=== PATIENT | female | born 1985 | race Caucasian/White ===

== ENCOUNTER 2016-10-16 07:56 | Day surgery (SDC) | payer BC, MEDICAID ==
[2016-10-16] MEDS ORDERED: Lactated Ringers 1,000 ML IV SCH (08:00)
[2016-10-16] MEDS ORDERED: ceFAZolin 1 GM in Sodium Chloride 0.9% 50 ML IV ONE (08:00)
[2016-10-16] MEDS ORDERED: Neostigmine Methylsulfate 1 MG/ML 5 ML Syringe IV ONE (10:00)
[2016-10-16] MEDS ORDERED: Ondansetron 4 MG/2 ML SDV IVPUSH ONE (10:00)
[2016-10-16] MEDS ORDERED: Lidocaine 1% with EPINEPHrine 1:100,000 20 ML MDV ONE (10:00)
[2016-10-16] MEDS ORDERED: Lidocaine 2% 100 MG/5 ML Syringe IVPUSH ONE (10:00)
[2016-10-16] MEDS ORDERED: fentaNYL 100 MCG/2 ML SDV IV ONE (10:00)
[2016-10-16] MEDS ORDERED: Propofol 200 MG/20 ML SDV IV ONE (10:00)
[2016-10-16] MEDS ORDERED: Bupivacaine 0.5% 30 ML SDV ONE (10:00)
[2016-10-16] MEDS ORDERED: Dexamethasone 4 MG/ML 5 ML MDV IVPUSH ONE (10:00)
[2016-10-16] MEDS ORDERED: Rocuronium 50 MG/5 ML Vial IV ONE (10:00)
[2016-10-16] MEDS ORDERED: Ketorolac 30 MG/ML SDV IVPUSH ONE (10:00)
[2016-10-16] MEDS ORDERED: Midazolam 1 MG/ML 2 ML SDV IV ONE (10:00)
[2016-10-16] MEDS ORDERED: Lactated Ringers 1,000 ML IV ONE (10:00)
--- NOTE | 2016-10-16 10:53 | PCM.OPNOTE ---
- General Post-Op/Procedure Note Date of Surgery/Procedure: 10/16/16 Operative Procedure(s): ventral hernia repair with mesh Findings: 2 cm defect Pre Op Diagnosis: ventral hernia Anesthesia Technique: General ET Tube, Local (7 ml 1% lido with epi/0.5% buvipicaine) Primary Surgeon: Amos Cifuentes Anesthesia Provider: Mily Henson Pathology: hernia sac Complications: None Condition: Good Free Text/Narrative:: see dictation [id number]
[2016-10-16] MEDS ORDERED: Acetaminophen/HYDROcodone 325-5 MG Tab PO ONE (11:47)
[2016-10-16 15:51] VITALS: BP 116/71
--- NOTE | 2016-10-16 16:34 | OR ---
DATE OF OPERATION: 10/16/2016 SURGEON: Amos Cifuentes MD PROCEDURE PERFORMED: Ventral hernia repair with mesh. PREOPERATIVE DIAGNOSIS: Ventral hernia. POSTOPERATIVE DIAGNOSIS: Ventral hernia. INDICATIONS FOR PROCEDURE: This is a 31-year-old white female, referred with a symptomatic ventral hernia. She was offered and accepted repair. INTRAOPERATIVE FINDINGS: As follows, a total of 7 mL of a 1:1 mixture of 1% lidocaine with epinephrine 0.5% bupivacaine was used to infiltrate our site. The defect itself was closed with a Ventralex ST hernia patch, reference #[id number], lot #[id number] with an expiration date of 07/24/2018. DESCRIPTION OF OPERATION: After an excellent general anesthetic was administered, the patient was prepped and draped in usual sterile manner. Local was used to infiltrate the area of the palpated defect. A 5-cm incision was then made and sharp dissection was carried out exposing the hernia. The fascia was widened to allow us to the open the hernia sac, and after ensuring no intraabdominal contents present, this was then dissected free from the underlying abdominal wall using electrocautery. A plane was raised to ensure that we had fascia on which to place our mesh. Our mesh was then inserted and the two ties were pulled up on each other and the defect was closed with a running 0 Vicryl incorporating the mesh ties into our suture line. The area was irrigated. The subcu fat was reapproximated with a running 3-0 Vicryl and the skin was closed with a running 3-0 Vicryl. Steri-Strips were applied. Needle, sponge, and instrument counts were reported as correct. The patient was taken to recovery in good condition. /[id number] /MODL
== END 2016-10-16 15:05 | disposition home or self-care (01) ==
LOC: FB.SDS 07:56
PROVIDERS: ATTEND Surgery
DX: K43.9 Ventral hernia without obstruction or gangrene (principal); Z88.2 Allergy status to sulfonamides; Z91.040 Latex allergy status; Z88.5 Allergy status to narcotic agent; F33.1 Major depressive disorder, recurrent, moderate; J45.909 Unspecified asthma, uncomplicated; Z98.890 Other specified postprocedural states; Z79.899 Other long term (current) drug therapy
CPT/HCPCS: 49560; 49568; 81025; A9270; J0690; J7050; J7120; 88302; C1781; J1100; J1885; J2250; J2405; J2704; J3010

== ENCOUNTER 2018-04-06 10:06 | Emergency (ER) | payer MEDICAID ==
[2018-04-06] MEDS ORDERED: Alum Hydroxide/Mag Hydroxide 15 ML, Lidocaine 2% 15 ML PO ONE ×2 (10:24)
[2018-04-06] MEDS ORDERED: Ondansetron 8 MG Tab.DIS PO STA (10:24)
--- NOTE | 2018-04-06 10:28 | EDM.PDOC ---
ED HPI GENERAL MEDICAL PROBLEM - General Stated Complaint: CHEST PAIN Time Seen by Provider: 04/06/18 10:06 Source of Information: Reports: Patient History Limitations: Reports: No Limitations - History of Present Illness INITIAL COMMENTS - FREE TEXT/NARRATIVE: 33 y.o.w.f -nonsmoker- came to the ed with andt CM "burning" and epigastric pain. Pt took tamps(?) with out improvement. Pt's DAD with age 62. 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 BP 138/ 84 RR 18 Pulse ox 100% on RA Temp 36.9 Pulse 88 Onset Date: 04/05/18 Onset Time: 06:00 Duration: Hour(s):, Intermittent Location: Reports: Chest Quality: Reports: Burning Severity: Moderate Improves with: Reports: Medication Worsens with: Reports: None Context: Reports: Sick Contact, Other (possible food related) Associated Symptoms: Reports: Other (nausea) - Related Data Allergies Allergy/AdvReac Type Severity Reaction Status Date / Time codeine Allergy Intermediate Rash Verified 04/06/18 11:15 latex Allergy Rash Verified 04/06/18 11:15 sulfamethoxazole Allergy Rash Verified 04/06/18 11:15 [From Bactrim] trimethoprim [From Bactrim] Allergy Rash Verified 04/06/18 11:15 Home Meds: Home Meds Albuterol [IJD: Ventolin HFA] 2 puff INH Q4H PRN 10/15/16 [History] LORazepam [Ativan] 0.5 mg PO BEDTIME 10/15/16 [History] Cyclobenzaprine [Flexeril] 10 mg pe PO DAILY PRN 04/06/18 [History] Meloxicam 7.5 mg PO DAILY 04/06/18 [History] Omeprazole 20 mg PO DAILY #10 cap.sr 04/06/18 [Rx] Venlafaxine [Effexor] 150 mg PO DAILY 04/06/18 [History] Zolpidem Tartrate [Ambien] 10 mg PO DAILY 04/06/18 [History] Past Medical History Cardiovascular History: Reports: None Respiratory History: Reports: Asthma Genitourinary History: Reports: UTI, 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: 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, Musculoskeletal History: Reports: Other (See Below) Other Musculoskeletal History: broken toe Neurological History: Reports: None Psychiatric History: Reports: Depression Endocrine/Metabolic History: Reports: Obesity/BMI 30+ Immunologic History: Reports: None Oncologic (Cancer) History: Reports: None Dermatologic History: Reports: Eczema - Past Surgical History Head Surgeries/Procedures: Reports: None HEENT Surgical History: Reports: Tonsillectomy GI Surgical History: Reports: Other (See Below) Other GI Surgeries/Procedures: HX DX LAPAROSCOPY Female Surgical History: Reports: Section Social & Family History - Family History Family Medical History: Noncontributory - Caffeine Use Caffeine Use: Reports: None ED ROS GENERAL - Review of Systems Review Of Systems: See Below Constitutional: Reports: No Symptoms HEENT: Reports: No Symptoms Respiratory: Reports: No Symptoms Cardiovascular: Reports: No Symptoms Endocrine: Reports: No Symptoms GI/Abdominal: Reports: Abdominal Pain (epigastric) : Reports: No Symptoms Musculoskeletal: Reports: No Symptoms Skin: Reports: No Symptoms Neurological: Reports: No Symptoms Psychiatric: Reports: No Symptoms Hematologic/Lymphatic: Reports: No Symptoms Immunologic: Reports: No Symptoms ED EXAM, GENERAL - Physical Exam Exam: See Below Exam Limited By: No Limitations General Appearance: Alert, WD/WN, Mild Distress Eye Exam: Bilateral Eye: Normal Inspection Ears: Normal External Exam Ear Exam: Bilateral Ear: Auricle Normal Nose: Normal Inspection, Normal Mucosa, No Blood Throat/Mouth: Normal Inspection, Normal Lips, Normal Teeth, Normal Gums, Normal Voice, No Airway Compromise Head: Atraumatic, Normocephalic Neck: Normal Inspection, Supple, Non-Tender, Full Range of Motion Respiratory/Chest: No Respiratory Distress, Lungs Clear, Normal Breath Sounds, No Accessory Muscle Use, Chest Non-Tender Cardiovascular: Normal Peripheral Pulses, Regular Rate, Rhythm, No Edema, No Gallop, No Rub Peripheral Pulses: 2+: Brachial (L) GI/Abdominal: Tender (epigastric) (Female) Exam: Deferred Rectal (Female) Exam: Deferred Back Exam: Normal Inspection, Full Range of Motion Extremities: Normal Inspection, Normal Range of Motion, Non-Tender, No Pedal Edema Neurological: Alert, Oriented, CN II-XII Intact, Normal Cognition, Normal Gait, No Motor/Sensory Deficits Psychiatric: Normal Affect, Normal Mood Skin Exam: Warm, Dry, Intact, Normal Color, No Rash Lymphatic: No Adenopathy EKG INTERPRETATION EKG Date: 04/06/18 Time: 10:15 Rhythm: NSR Rate (Beats/Min): 88 [place]: Normal P-Wave: Present QRS: Normal ST-T: Normal QT: Normal Comparison: NA - No Prior EKG Course - Vital Signs Text/Narrative:: 33 y.o.w.f -nonsmoker- came to the ed with andt CM "burning" and epigastric pain. Pt took tamps(?) with out improvement. Pt's DAD with age 62. 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 BP 138/ 84 RR 18 Pulse ox 100% on RA Temp 36.9 Pulse 88 PE: WNWD W F with epigastric pain ECG: NSR Imporession: Gastritis Tx: Zofran: GI cocktail Reexam: 100% improvement Plan: D/C with instructions Last Recorded V/S: Last Vital Signs Temp 36.9 C 04/06/18 12:00 Pulse 70 04/06/18 12:00 Resp 18 04/06/18 12:00 BP 128/84 04/06/18 12:00 Pulse Ox 100 04/06/18 12:00 - Orders/Labs/Meds Orders: Active Orders 24 hr Category Date Time Status EKG 12 Lead [EK] Routine Ther 04/06/18 10:05 Ordered Meds: Medications Discontinued Medications Generic Name Dose Route Start Last Admin Trade Name Jordanq PRN Reason Stop Dose Admin Al Hydroxide/Mg Hydroxide 15 0 ml 04/06/18 10:24 04/06/18 10:35 ml/ Lidocaine HCl 15 ml PO 04/06/18 10:25 15 ml ONETIME ONE Administration Ondansetron HCl 8 mg 04/06/18 10:24 04/06/18 10:35 Zofran Odt PO 04/06/18 10:25 8 mg ONETIME STA Administration Departure - Departure Time of Disposition: 11:35 Disposition: Home, Self-Care 01 Condition: Good Clinical Impression: Gastritis Qualifiers: Gastritis type: other gastritis Chronicity: acute Prescriptions: Omeprazole 20 mg PO DAILY #10 cap.sr Referrals: Osmar Zuniga MD [Primary Care Provider] - Forms: ED Return to Work/School Form Additional Instructions: Please avoid spicy food, coffee etc. Take Maalox 30 cc every evening before bed time for 5 days, Omeprazole as recommeded, please follow up. Come back if your symptoms get worse acutely - My Orders Last 24 Hours: My Active Orders 04/06/18 10:05 EKG 12 Lead [EK] Routine - Assessment/Plan Last 24 Hours: My Active Orders 04/06/18 10:05 EKG 12 Lead [EK] Routine
[2018-04-06 14:00] VITALS: BP 128/84
== END 2018-04-06 12:05 | disposition home or self-care (01) ==
LOC: FB.ED 10:06
DX: K29.00 Acute gastritis without bleeding (principal); E66.9 Obesity, unspecified; Z88.5 Allergy status to narcotic agent; Z88.8 Allergy status to other drugs, medicaments and biological substances; Z88.2 Allergy status to sulfonamides
CPT/HCPCS: 93005; 99283; A9270

== ENCOUNTER 2019-11-20 08:17 | Day surgery (SDC) | payer MEDICAID ==
[2019-11-20] MEDS ORDERED: Propofol 200 MG/20 ML SDV IV ONE (08:18)
[2019-11-20] MEDS ORDERED: Lidocaine 2% 5 ML SDV IV ONE (08:18)
[2019-11-20] MEDS ORDERED: Lactated Ringers 1,000 ML IV SCH (08:45)
[2019-11-20] MEDS ORDERED: Sodium Chloride 0.9% 10 ML Syringe FLUSH PRN (08:45)
--- NOTE | 2019-11-20 10:52 | PCM.OPNOTE ---
- General Post-Op/Procedure Note Date of Surgery/Procedure: 11/20/19 Operative Procedure(s): egd with biopsy Findings: gastritis fundic gland polyps Pre Op Diagnosis: hx of epigastric abd pain Post-Op Diagnosis: gastritis. fundic gland polyps Anesthesia Technique: TIFFANY Primary Surgeon: Amos Cifuentes Anesthesia Provider: Cody Pastor Pathology: stomach and polyps Complications: None Condition: Good Free Text/Narrative:: see dictation
[2019-11-20 11:40] VITALS: BP 127/79; PULSE 76
--- NOTE | 2019-11-20 11:45 | OR ---
DATE OF OPERATION: 11/20/2019 SURGEON: Amos Cifuentes MD PROCEDURE PERFORMED: Esophagogastroduodenoscopy with cold forceps biopsy. PREOPERATIVE DIAGNOSIS: History of epigastric abdominal pain and hepatosplenomegaly. POSTOPERATIVE DIAGNOSIS: Gastritis and fundic gland polyposis. INDICATIONS FOR PROCEDURE: This is a 34-year-old white female, who is referred with a history of some epigastric discomfort. She has recently been diagnosed to have some hepatosplenomegaly. However, an EGD was offered as part of a workup. DESCRIPTION OF OPERATION: After an excellent IV sedation was administered via anesthesia, the bite block was inserted. The flexible endoscope was passed without difficulty down the patient's esophagus into the stomach. Stomach was insufflated. The scope passed through the pylorus to the second portion of the duodenum and slowly withdrawn. The following findings were noted: The duodenum was unremarkable. Stomach, mild gastritis noted in the area of the antrum. Biopsies were taken, and then along the greater and lesser curve of the stomach, there were several polyps having the gross appearance of fundic gland polyposis, and major account representative biopsies were taken of several of these lesions and submitted in a separate container. GE junction measured at 40 cm. The esophagus was unremarkable. The patient tolerated the procedure well, was taken to Recovery in good condition. Results will be sent to her via letter. /[id number] /MODL
== END 2019-11-20 11:52 | disposition home or self-care (01) ==
LOC: FB.SDS 08:17
PROVIDERS: ATTEND Surgery
DX: K29.50 Unspecified chronic gastritis without bleeding (principal); K31.7 Polyp of stomach and duodenum; R16.2 Hepatomegaly with splenomegaly, not elsewhere classified; E11.9 Type 2 diabetes mellitus without complications; J45.909 Unspecified asthma, uncomplicated; Z79.899 Other long term (current) drug therapy; Z88.5 Allergy status to narcotic agent; Z88.2 Allergy status to sulfonamides; Z88.8 Allergy status to other drugs, medicaments and biological substances
CPT/HCPCS: 00731-QZ; 88305; 88342; J2001; J2704; J7120

== ENCOUNTER 2020-06-24 07:10 | Emergency (ER) | payer MEDICAID ==
[2020-06-24] MEDS ORDERED: SUMAtriptan 6 MG/0.5 ML SDV SUBCUT ONE (07:54)
[2020-06-24] MEDS ORDERED: Ondansetron 4 MG/2 ML SDV IM ONE (07:54)
--- NOTE | 2020-06-24 07:58 | EDM.PDOC ---
ED HPI GENERAL MEDICAL PROBLEM - General Chief Complaint: Headache Stated Complaint: Migraine Time Seen by Provider: 06/24/20 07:56 Source of Information: Reports: Patient History Limitations: Reports: No Limitations - History of Present Illness INITIAL COMMENTS - FREE TEXT/NARRATIVE: Presents with an occipital headache that radiates to upper back and bitemporal scalp, associated with nausea and photophobia. Patient states it feels similar to prior Migraine headaches but typical migraines are frontal, so the location is atypical. Denies injury. Onset Date: 06/23/20 Location: Reports: Head Quality: Reports: Ache Severity: Moderate Headache Pain Score (Numeric/FACES): 5 - Related Data Allergies Allergy/AdvReac Type Severity Reaction Status Date / Time codeine Allergy Intermediate Rash Verified 06/24/20 07:21 latex Allergy Rash Verified 06/24/20 07:21 sulfamethoxazole Allergy Rash Verified 06/24/20 07:21 [From Bactrim] trimethoprim [From Bactrim] Allergy Rash Verified 06/24/20 07:21 Home Meds: Home Meds LORazepam [Ativan] 0.5 mg PO BEDTIME PRN 10/15/16 [History] Cyclobenzaprine [Flexeril] 10 mg pe PO DAILY 04/06/18 [History] Zolpidem Tartrate [Ambien] 10 mg PO DAILY 04/06/18 [History] Ibuprofen [Advil] 200 mg PO ASDIRECTED PRN 11/16/19 [History] metFORMIN [Glucophage] 500 mg PO WITHDINNER 06/24/20 [History] Past Medical History HEENT History: Reports: Impaired Vision Other HEENT History: MYOPIA, INTRACTABLE MIGRAINE WITH AURA Cardiovascular History: Reports: None Other Cardiovascular History: MITRAL REGURGITATION Respiratory History: Reports: Asthma Genitourinary History: Reports: UTI, 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, Other WATER MAINTENANCE SUPERVISOR History: ABSENCE OF MENSTRUATION Musculoskeletal History: Reports: Other (See Below) Other Musculoskeletal History: broken toe Neurological History: Reports: Migraines Psychiatric History: Reports: Depression Other Psychiatric History: PANIC DISORDER Endocrine/Metabolic History: Reports: Obesity/BMI 30+ Immunologic History: Reports: None Oncologic (Cancer) History: Reports: None Dermatologic History: Reports: Eczema Other Dermatologic History: DERMATITIS, - Infectious Disease History Infectious Disease History: Reports: None - Past Surgical History Head Surgeries/Procedures: Reports: None HEENT Surgical History: Reports: Naso-Sinus Surgery, Tonsillectomy, Other (See Below) Other HEENT Surgeries/Procedures: SEPTOPLASTY Respiratory Surgical History: Reports: None GI Surgical History: Reports: Other (See Below) Other GI Surgeries/Procedures: HX DX LAPAROSCOPY Female Surgical History: Reports: Section Social & Family History - Family History Family Medical History: No Pertinent Family History - Tobacco Use Tobacco Use Status *Q: Never Tobacco User Second Hand Smoke Exposure: No - Caffeine Use Caffeine Use: Reports: Energy Drinks Other Caffeine Use: occasional - Recreational Drug Use Recreational Drug Use: No ED ROS GENERAL - Review of Systems Review Of Systems: Comprehensive ROS is negative, except as noted in HPI. - Physical Exam Exam: See Below Exam Limited By: No Limitations General Appearance: Alert, WD/WN, No Apparent Distress Eye Exam: Bilateral Eye: EOMI, PERRL Ears: Normal External Exam Throat/Mouth: No Airway Compromise Head Exam: Atraumatic, Normocephalic Neck: Supple Respiratory/Chest: No Respiratory Distress Cardiovascular: Regular Rate, Rhythm, No Murmur Neuro Exam (Abbreviated): Alert, Normal Cognition, No Motor/Sensory Deficits Extremities: Normal Range of Motion Psychiatric: Normal Affect, Normal Mood Skin Exam: Warm, Dry, Intact Course - Vital Signs Last Recorded V/S: Last Vital Signs Temp 36.4 C 06/24/20 08:57 Pulse 76 06/24/20 08:57 Resp 16 06/24/20 08:57 BP 130/74 06/24/20 08:57 Pulse Ox 95 06/24/20 08:57 - Orders/Labs/Meds Orders: Active Orders 24 hr Category Date Time Status Head wo Cont [CT] Stat Exams 06/24/20 07:54 Ordered Meds: Medications Discontinued Medications Generic Name Dose Route Start Last Admin Trade Name Freq PRN Reason Stop Dose Admin Ondansetron HCl 4 mg 06/24/20 07:54 06/24/20 08:01 Ondansetron 4 Mg/2 Ml Sdv IM 06/24/20 07:55 4 mg ONETIME ONE Administration Sumatriptan Succinate 6 mg 06/24/20 07:54 06/24/20 08:01 Sumatriptan 6 Mg/0.5 Ml Sdv SUBCUT 06/24/20 07:55 6 mg ONETIME ONE Administration - Radiology Interpretation Free Text/Narrative:: Head CT s/ contrast: IMPRESSION: Unremarkable noncontrast CT scan of the brain. Dictated by Valdez Layton MD @ Jun 24 2020 9:04AM - Re-Assessments/Exams Free Text/Narrative Re-Assessment/Exam: 06/24/20 09:12 Symptoms improved after Imitrex 6mg SC and Zofran 4mg IM. Departure - Departure Time of Disposition: 09:12 Disposition: Home, Self-Care 01 Condition: Good Clinical Impression: Migraine Qualifiers: Migraine type: unspecified Status migrainosus presence: without status migrainosus Intractability: not intractable Qualified Code(s): G43.909 - Migraine, unspecified, not intractable, without status migrainosus - Discharge Information Instructions: Migraine Headache, [id number] Referrals: Osmar Zuniga MD [Primary Care Provider] - 2 Days Forms: ED Department Discharge, ED Return to Work/School Form Additional Instructions: Rest. Drink plenty of fluids. Follow up with your primary physician in 2-3 days. Return to the ER if symptoms worsen. Sepsis Event Note (ED) - Evaluation Sepsis Screening Result: No Definite Risk - Focused Exam Vital Signs: Vital Signs Temp Pulse Resp BP Pulse Ox 06/24/20 08:57 36.4 C 76 16 130/74 95 06/24/20 07:15 36.9 C 90 16 145/78 H 96 - My Orders Last 24 Hours: My Active Orders 06/24/20 07:54 Head wo Cont [CT] Stat - Assessment/Plan Last 24 Hours: My Active Orders 06/24/20 07:54 Head wo Cont [CT] Stat
[2020-06-24 08:58] VITALS: BP 130/74; PULSE 76
== END 2020-06-24 09:25 | disposition home or self-care (01) ==
LOC: FB.ED 07:10
DX: G43.909 Migraine, unspecified, not intractable, without status migrainosus (principal); J45.909 Unspecified asthma, uncomplicated; E66.9 Obesity, unspecified; Z68.32 Body mass index [BMI] 32.0-32.9, adult; Z79.899 Other long term (current) drug therapy; Z88.5 Allergy status to narcotic agent; Z91.040 Latex allergy status; Z88.2 Allergy status to sulfonamides; Z88.1 Allergy status to other antibiotic agents
CPT/HCPCS: 70450; 96372; 99283-25; J2405; J3030

== ENCOUNTER 2020-09-11 17:48 | Emergency (ER) | payer BC, MEDICAID ==
[2020-09-11] MEDS ORDERED: Glucagon,Human Recombinant 1 MG Vial IM PRN (18:31)
[2020-09-11] MEDS ORDERED: Insulin Lispro 100 Unit/ML 3 ML KwikPen SUBCUT STA (18:31)
[2020-09-11] MEDS ORDERED: Sodium Chloride 0.9% 10 ML Syringe FLUSH PRN (18:31)
[2020-09-11] MEDS ORDERED: 50% Dextrose in Water 50 ML Syringe IVPUSH PRN (18:31)
[2020-09-11] MEDS ORDERED: Metoprolol Tartrate 25 MG Tab PO STA (18:36)
[2020-09-11] MEDS ORDERED: Sodium Chloride 0.9% 1,000 ML IV SCH (18:45)
[2020-09-11] MEDS ORDERED: Insulin Lispro 100 Unit/ML 3 ML KwikPen SUBCUT ONE (18:51)
--- NOTE | 2020-09-11 19:08 | EDM.PDOC ---
ED HPI GENERAL MEDICAL PROBLEM - General Stated Complaint: DIABETES Time Seen by Provider: 09/11/20 18:55 Source of Information: Reports: Patient History Limitations: Reports: No Limitations - History of Present Illness INITIAL COMMENTS - FREE TEXT/NARRATIVE: Patient presented to the ED because of altered level of consciousness. She was disoriented and confused since yesterday. She went to the [facility] today and the cbc-normal. [id number],UA-negative, Covid-neg,HCG-neg. She has a history of Stage 4 liver cirrhosis and will see her Classification And Treatment Director at [facility] sometime in September this year. - Related Data Allergies Allergy/AdvReac Type Severity Reaction Status Date / Time codeine Allergy Intermediate Rash Verified 06/24/20 07:21 latex Allergy Rash Verified 06/24/20 07:21 sulfamethoxazole Allergy Rash Verified 06/24/20 07:21 [From Bactrim] trimethoprim [From Bactrim] Allergy Rash Verified 06/24/20 07:21 Home Meds: Home Meds LORazepam [Ativan] 0.5 mg PO BEDTIME PRN 10/15/16 [History] Cyclobenzaprine [Flexeril] 10 mg pe PO DAILY 04/06/18 [History] Zolpidem Tartrate [Ambien] 10 mg PO DAILY 04/06/18 [History] Ibuprofen [Advil] 200 mg PO ASDIRECTED PRN 11/16/19 [History] metFORMIN [Glucophage] 500 mg PO WITHDINNER 06/24/20 [History] Past Medical History HEENT History: Reports: Impaired Vision Other HEENT History: MYOPIA, INTRACTABLE MIGRAINE WITH AURA Cardiovascular History: Reports: None Other Cardiovascular History: MITRAL REGURGITATION Respiratory History: Reports: Asthma Genitourinary History: Reports: UTI, 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: 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, Other SIGNAL INTELLIGENCE ANALYST History: ABSENCE OF MENSTRUATION Musculoskeletal History: Reports: Other (See Below) Other Musculoskeletal History: broken toe Neurological History: Reports: Migraines Psychiatric History: Reports: Depression Other Psychiatric History: PANIC DISORDER Endocrine/Metabolic History: Reports: Obesity/BMI 30+ Immunologic History: Reports: None Oncologic (Cancer) History: Reports: None Dermatologic History: Reports: Eczema Other Dermatologic History: DERMATITIS, - Infectious Disease History Infectious Disease History: Reports: None - Past Surgical History Head Surgeries/Procedures: Reports: None HEENT Surgical History: Reports: Naso-Sinus Surgery, Tonsillectomy, Other (See Below) Other HEENT Surgeries/Procedures: SEPTOPLASTY Respiratory Surgical History: Reports: None GI Surgical History: Reports: Other (See Below) Other GI Surgeries/Procedures: HX DX LAPAROSCOPY Female Surgical History: Reports: Section Social & Family History - Family History Family Medical History: No Pertinent Family History - Caffeine Use Caffeine Use: Reports: Energy Drinks Other Caffeine Use: occasional ED ROS GENERAL - Review of Systems Review Of Systems: See Below Constitutional: Reports: No Symptoms HEENT: Reports: No Symptoms Respiratory: Reports: No Symptoms Cardiovascular: Reports: No Symptoms Endocrine: Reports: No Symptoms GI/Abdominal: Reports: No Symptoms : Reports: No Symptoms Musculoskeletal: Reports: No Symptoms Skin: Reports: No Symptoms Neurological: Reports: Confusion Psychiatric: Reports: No Symptoms Hematologic/Lymphatic: Reports: No Symptoms ED EXAM, GENERAL - Physical Exam Exam: See Below Exam Limited By: No Limitations General Appearance: Alert, No Apparent Distress Ears: Normal External Exam, Normal Canal Nose: Normal Inspection, Normal Mucosa, No Blood Throat/Mouth: Normal Inspection, Normal Lips, Normal Teeth Head: Atraumatic, Normocephalic Neck: Normal Inspection, Supple, Non-Tender, Full Range of Motion Respiratory/Chest: No Respiratory Distress, Lungs Clear, Normal Breath Sounds, No Accessory Muscle Use, Chest Non-Tender Cardiovascular: Normal Peripheral Pulses, Regular Rate, Rhythm, No Edema, No Gallop, No JVD GI/Abdominal: Normal Bowel Sounds, Soft, Non-Tender, No Organomegaly, No Distention Back Exam: Normal Inspection, Full Range of Motion Course - Vital Signs Text/Narrative:: Labs from [facility] was reviewed and discussed with patient NH3-pending NS 1 L bolus Humalog [address] Hassan will take responsibility about the Disposition for the patient as there is a change in shift. Last Recorded V/S: Last Vital Signs Temp 37.2 C 09/11/20 18:36 Pulse 80 09/11/20 18:36 Resp 18 09/11/20 18:36 BP 133/78 09/11/20 18:36 Pulse Ox 96 09/11/20 18:36 - Orders/Labs/Meds Orders: Active Orders 24 hr Category Date Time Status Head wo Cont [CT] Stat Exams 09/11/20 19:02 Taken AMMONIA, PLASMA Stat Lab 09/11/20 18:40 Received Saline Lock Insert [OM.PC] Routine Oth 09/11/20 18:31 Ordered Labs: Laboratory Tests 09/11/20 Range/Units 19:56 POC Glucose 163 H (80-116) mg/dL Meds: Medications Discontinued Medications Generic Name Dose Route Start Last Admin Trade Name Amada PRN Reason Stop Dose Admin Dextrose/Water 50 ml 09/11/20 18:31 50% Dextrose In Water 50 Ml Syringe IVPUSH ASDIRECTED PRN Hypoglycemia Glucagon 1 mg 09/11/20 18:31 Glucagon,Human Recombinant 1 Mg Vial IM ASDIRECTED PRN Hypoglycemia Sodium Chloride 1,000 mls @ 999 mls/hr 09/11/20 18:45 09/11/20 18:48 Normal Saline IV 999 mls/hr ASDIRECTED PRICE Administration Insulin Human Lispro 15 unit 09/11/20 18:31 09/11/20 18:53 Insulin Lispro 100 Unit/Ml 3 Ml Kwikpen SUBCUT 09/11/20 18:32 15 units NOW STA Administration Insulin Human Lispro 300 unit 09/11/20 18:51 Insulin Lispro 100 Unit/Ml 3 Ml Kwikpen SUBCUT 09/11/20 18:52 .STK-MED ONE Metoprolol Tartrate 25 mg 09/11/20 18:36 Metoprolol Tartrate 25 Mg Tab PO 09/11/20 18:37 NOW STA Sodium Chloride 10 ml 09/11/20 18:31 Sodium Chloride 0.9% 10 Ml Syringe FLUSH ASDIRECTED PRN Keep Vein Open Departure - Departure Time of Disposition: 20:49 Disposition: Home, Self-Care 01 Clinical Impression: Hyperglycemia - Discharge Information Instructions: Ammonia Test, Hyperglycemia, Diabetes Mellitus and Nutrition, Adult Referrals: Osmar Zuniga MD [Primary Care Provider] - Forms: ED Department Discharge Additional Instructions: Your ammonia lab results won't be back until Wednesday or Wednesday. We will call with your results at that time. Monitor your blood sugar and follow up tomorrow with your primary care provider. - My Orders Last 24 Hours: My Active Orders 09/11/20 18:31 Saline Lock Insert [OM.PC] Routine 09/11/20 18:40 AMMONIA, PLASMA Stat 09/11/20 19:02 Head wo Cont [CT] Stat - Assessment/Plan Last 24 Hours: My Active Orders 09/11/20 18:31 Saline Lock Insert [OM.PC] Routine 09/11/20 18:40 AMMONIA, PLASMA Stat 09/11/20 19:02 Head wo Cont [CT] Stat
[2020-09-11 19:18] VITALS: BP 133/78; PULSE 80
== END 2020-09-11 20:49 | disposition home or self-care (01) ==
LOC: FB.ED 17:48
DX: R73.9 Hyperglycemia, unspecified (principal); E66.9 Obesity, unspecified; Z68.30 Body mass index [BMI] 30.0-30.9, adult; Z88.5 Allergy status to narcotic agent; Z91.040 Latex allergy status; Z88.1 Allergy status to other antibiotic agents
CPT/HCPCS: 36415; 70450; 82140; 82947; 99283; 99285-25; J1815; J7030

== ENCOUNTER 2020-11-13 15:31 | Emergency (ER) | payer MEDICAID, BC ==
[2020-11-13] MEDS ORDERED: Aspirin 81 MG Tab.Chew PO ONE (15:43)
[2020-11-13] MEDS ORDERED: Metoclopramide 10 MG/2 ML SDV IVPUSH ONE (15:43)
[2020-11-13] MEDS ORDERED: Nitroglycerin 0.4 MG Tab.SL SL ONE (15:43)
[2020-11-13] MEDS ORDERED: Alum Hydroxide/Mag Hydroxide 30 ML, Lidocaine 2% 15 ML PO ONE ×2 (15:44)
--- NOTE | 2020-11-13 16:57 | EDM.PDOC ---
ED HPI GENERAL MEDICAL PROBLEM - General Stated Complaint: CHEST PAINS Time Seen by Provider: 11/13/20 15:31 Source of Information: Reports: Patient, Family History Limitations: Reports: No Limitations - History of Present Illness INITIAL COMMENTS - FREE TEXT/NARRATIVE: c/o midsternal chest pain no radiation, ate fast food for lunch, one hour later had sharp pain in mid substernal area comes to ED with Alexander and 2 children, very anxious on arrival altho HR 84, pain resolved after GI cocktail, also given NTG SL to relax esophagus and ASA 324 mg chewed, some nausea, given Reglan 10 mg IV for pain and nausea pt states she has had panic attacks in past has stage 4 cirrhosis which is d/t DM (per pt), suspect low plts and mild inc'd LFTs/CRP are d/t cirrhosis - Related Data Allergies Allergy/AdvReac Type Severity Reaction Status Date / Time codeine Allergy Intermediate Rash Verified 06/24/20 07:21 latex Allergy Rash Verified 06/24/20 07:21 sulfamethoxazole Allergy Rash Verified 06/24/20 07:21 [From Bactrim] trimethoprim [From Bactrim] Allergy Rash Verified 06/24/20 07:21 Home Meds: Home Meds LORazepam [Ativan] 0.5 mg PO BEDTIME PRN 10/15/16 [History] Cyclobenzaprine [Flexeril] 10 mg pe PO DAILY 04/06/18 [History] Zolpidem Tartrate [Ambien] 10 mg PO DAILY 04/06/18 [History] Ibuprofen [Advil] 200 mg PO ASDIRECTED PRN 11/16/19 [History] metFORMIN [Glucophage] 500 mg PO WITHDINNER 06/24/20 [History] Omeprazole 20 mg PO DAILY #14 capsule. 11/13/20 [Rx] hydrOXYzine HCL [Hydroxyzine HCl] 25 mg PO TID #15 tablet 11/13/20 [Rx] Past Medical History HEENT History: Reports: Impaired Vision Other HEENT History: MYOPIA, INTRACTABLE MIGRAINE WITH AURA Cardiovascular History: Reports: None Other Cardiovascular History: MITRAL REGURGITATION Respiratory History: Reports: Asthma Genitourinary History: Reports: UTI, Recurrent PLUMBER AND TINNER History: Reports: 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, Other PLUMBER AND TINNER History: ABSENCE OF MENSTRUATION Musculoskeletal History: Reports: Other (See Below) Other Musculoskeletal History: broken toe Neurological History: Reports: Migraines Psychiatric History: Reports: Depression Other Psychiatric History: PANIC DISORDER Endocrine/Metabolic History: Reports: Diabetes, Type II, Obesity/BMI 30+ Immunologic History: Reports: None Oncologic (Cancer) History: Reports: None Dermatologic History: Reports: Eczema Other Dermatologic History: DERMATITIS, - Infectious Disease History Infectious Disease History: Reports: None - Past Surgical History Head Surgeries/Procedures: Reports: None HEENT Surgical History: Reports: Naso-Sinus Surgery, Tonsillectomy, Other (See Below) Other HEENT Surgeries/Procedures: SEPTOPLASTY Respiratory Surgical History: Reports: None GI Surgical History: Reports: Other (See Below) Other GI Surgeries/Procedures: HX DX LAPAROSCOPY Female Surgical History: Reports: Section Social & Family History - Family History Family Medical History: No Pertinent Family History - Caffeine Use Caffeine Use: Reports: Soda Other Caffeine Use: occasional ED ROS GENERAL - Review of Systems Review Of Systems: See Below Constitutional: Reports: No Symptoms. Denies: Fever HEENT: Reports: No Symptoms Respiratory: Reports: No Symptoms. Denies: Shortness of Breath, Cough Cardiovascular: Reports: No Symptoms, Chest Pain. Denies: Palpitations Endocrine: Reports: No Symptoms GI/Abdominal: Reports: Nausea. Denies: Vomiting : Reports: No Symptoms Musculoskeletal: Reports: No Symptoms Skin: Reports: No Symptoms Neurological: Reports: No Symptoms Psychiatric: Reports: No Symptoms Hematologic/Lymphatic: Reports: No Symptoms Immunologic: Reports: No Symptoms ED EXAM, GI/ABD - Physical Exam Exam: See Below Exam Limited By: No Limitations General Appearance: Alert, WD/WN, Anxious Eyes: Bilateral: EOMI Ears: Normal External Exam, Hearing Grossly Normal Nose: Normal Inspection, Normal Mucosa, No Blood Throat/Mouth: Normal Inspection, Normal Lips, Normal Voice, No Airway Compromise Head: Atraumatic, Normocephalic Neck: Normal Inspection, Supple, Non-Tender, Full Range of Motion Respiratory/Chest: No Respiratory Distress, Lungs Clear, Normal Breath Sounds, Chest Non-Tender Cardiovascular: Regular Rate, Rhythm, No Edema, No Gallop, No Murmur GI/Abdominal Exam: Normal Bowel Sounds, Soft, No Distention, Other (1+ epigastric tender that resolved after GI cocktail) Back Exam: No: CVA Tenderness (R), CVA Tenderness (L) Extremities: Normal Inspection, Normal Range of Motion, Non-Tender, No Pedal Edema Neurological: Alert, Oriented, CN II-XII Intact, Normal Cognition, No Motor/Sensory Deficits Psychiatric: Anxious, Other (visible anxious and shaking, more calm on reassurance from RN and myself) Skin Exam: Warm, Dry, Intact, Normal Color, No Rash Lymphatic: No Adenopathy #1 Interpretation EKG Date: 11/13/20 Time: 15:25 Rhythm: NSR Rate (Beats/Min): 90 [place]: Normal P-Wave: Present QRS: Normal ST-T: Normal QT: Normal EKG Interpretation Comments: NSC c/w 04-06-18, baseline artifact, nonspecific flattening of T-waves is old and c/w liver disease, no acute/ischemic changes Course - Vital Signs Last Recorded V/S: Last Vital Signs Temp Pulse Resp BP 167/107 H 11/13/20 15:50 Pulse Ox - Orders/Labs/Meds Labs: Laboratory Tests 11/13/20 11/13/20 11/13/20 Range/Units 15:40 15:40 15:40 WBC 9.9 (3.0-10.3) x10-3/uL RBC 4.20 (3.60-5.20) x10(6)uL Hgb 12.7 (11.4-15.5) g/dL Hct 37.8 (34.2-48.2) % MCV 89.9 (76.7-100.5) fL MCH 30.2 (23.9-33.9) pg MCHC 33.6 (31.9-34.8) g/dL RDW 13.1 (12.3-16.5) % Plt Count 129 L (151-488) x10(3)uL MPV 8.8 (7.1-12.4) fL Neut % (Auto) 56.3 (30.8-76.2) % Lymph % (Auto) 37.2 (18.4-52.1) % [place] % (Auto) 5.0 (4.4-15.7) % Eos % (Auto) 1.1 (0.6-8.1) % Baso % (Auto) 0.4 (0.2-1.5) % Neut # (Auto) 5.6 (1.5-6.3) x10-3/uL Lymph # (Auto) 3.7 (1.0-4.4) x10-3/uL [place] # (Auto) 0.5 (0.3-1.0) x10-3/uL Eos # (Auto) 0.1 (0.0-0.8) x10-3/uL Baso # (Auto) 0.0 (0.0-0.1) x10-3/uL Sodium 142 (135-145) mmol/L Potassium 3.9 (3.5-5.3) mmol/L Chloride 105 (100-110) mmol/L Carbon Dioxide 25 (21-32) mmol/L BUN 8 (7-18) mg/dL Creatinine 0.8 (0.55-1.02) mg/dL Est Cr Clr Drug Dosing TNP Estimated GFR (MDRD) > 60 (>60) BUN/Creatinine Ratio 10.0 (9-20) Glucose 131 H (80-116) mg/dL Calcium 9.2 (8.6-10.2) mg/dL Total Bilirubin 0.6 (0.1-1.3) mg/dL AST 55 H (5-25) IU/L ALT 39 H (12-36) U/L Alkaline Phosphatase 94 (56-112) IU/L Troponin I < 4.0 L (4.0-60.3) pg/mL C-Reactive Protein 1.1 H (0.5-0.9) mg/dL Total Protein 8.0 (6.0-8.0) g/dL Albumin 3.9 (3.5-5.2) g/dL Globulin 4.1 g/dL Albumin/Globulin Ratio 1.0 Meds: Medications Discontinued Medications Generic Name Dose Route Start Last Admin Trade Name Freq PRN Reason Stop Dose Admin Aspirin 324 mg 11/13/20 15:43 11/13/20 15:47 Aspirin 81 Mg Tab.Chew PO 11/13/20 15:44 324 mg ONETIME ONE Administration Al Hydroxide/Mg Hydroxide 30 0 ml 11/13/20 15:44 11/13/20 15:51 ml/ Lidocaine HCl 15 ml PO 11/13/20 15:45 45 ml ONETIME ONE Administration Metoclopramide HCl 10 mg 11/13/20 15:43 11/13/20 15:51 Metoclopramide 10 Mg/2 Ml Sdv IVPUSH 11/13/20 15:44 10 mg ONETIME ONE Administration Nitroglycerin 0.4 mg 11/13/20 15:43 11/13/20 15:50 Nitroglycerin 0.4 Mg Tab.Sl SL 11/13/20 15:44 0.4 mg ONETIME ONE Administration - Re-Assessments/Exams Free Text/Narrative Re-Assessment/Exam: 11/13/20 17:04 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 Instructions: Nonspecific Chest Pain, Adult, Gastroesophageal Reflux Disease, Adult Referrals: Osmar Zuniga MD [Primary Care Provider] - Additional Instructions: To decrease acid production, take omeprazole 20 mg 1 capsule daily for 2 weeks. For recurrent pain, take liquid antacid 30 ml every 4 hours as needed. To prevent cramping and pain, take hydroxyzine 25 mg 1 tab 3 times a day for 5 days. Rest today May work tomorrow. See Dr Zuniga in 2 days for further recommendations. Return to Emergency Room if you are feeling worse. Sepsis Event Note (ED) - Focused Exam Vital Signs: Vital Signs BP 11/13/20 15:50 167/107 H
[2020-11-13 18:14] VITALS: BP 153/100; PULSE 88
== END 2020-11-13 17:10 | disposition home or self-care (01) ==
LOC: FB.ED 15:31
DX: R07.2 Precordial pain (principal); K21.9 Gastro-esophageal reflux disease without esophagitis; D69.6 Thrombocytopenia, unspecified; R79.89 Other specified abnormal findings of blood chemistry; E11.9 Type 2 diabetes mellitus without complications; E66.9 Obesity, unspecified; Z88.5 Allergy status to narcotic agent; Z91.040 Latex allergy status; Z88.1 Allergy status to other antibiotic agents; Z79.84 Long term (current) use of oral hypoglycemic drugs; Z79.899 Other long term (current) drug therapy; Z68.32 Body mass index [BMI] 32.0-32.9, adult
CPT/HCPCS: 36415; 80053; 84484; 85025; 86140; 93005; 96374; 99285; A9270; J2765

== ENCOUNTER 2020-12-30 19:45 | Emergency (ER) | payer MEDICAID, BC ==
[2020-12-30 20:19] VITALS: BP 151/84; PULSE 86
--- NOTE | 2020-12-30 20:54 | EDM.PDOC ---
ED HPI GENERAL MEDICAL PROBLEM - General Chief Complaint: General Stated Complaint: POSS UTI/ Time Seen by Provider: 12/30/20 20:10 Source of Information: Reports: Patient History Limitations: Reports: No Limitations - History of Present Illness INITIAL COMMENTS - FREE TEXT/NARRATIVE: Patient presented to the ED because increase frequency of urination. There is no dysuria, urgency, fever,chills, nausea, vomiting or flank pain. - Related Data Allergies Allergy/AdvReac Type Severity Reaction Status Date / Time codeine Allergy Intermediate Rash Verified 11/13/20 17:44 latex Allergy Rash Verified 11/13/20 17:44 sulfamethoxazole Allergy Rash Verified 11/13/20 17:44 [From Bactrim] trimethoprim [From Bactrim] Allergy Rash Verified 11/13/20 17:44 Home Meds: Home Meds Insulin Aspart [Novolog Flexpen] 7 units ACBREAKFAST 12/30/20 [History] Insulin Detemir [Levemir] 20 units BEDTIME 12/30/20 [History] cephALEXin [Keflex] 500 mg PO Q8H #15 cap 12/30/20 [Rx] Past Medical History HEENT History: Reports: Impaired Vision Other HEENT History: MYOPIA, INTRACTABLE MIGRAINE WITH AURA Cardiovascular History: Reports: None Other Cardiovascular History: MITRAL REGURGITATION Respiratory History: Reports: Asthma Genitourinary History: Reports: UTI, Recurrent MUTUAL FUND MANAGER History: Reports: 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, Other MUTUAL FUND MANAGER History: ABSENCE OF MENSTRUATION Musculoskeletal History: Reports: Other (See Below) Other Musculoskeletal History: broken toe Neurological History: Reports: Migraines Psychiatric History: Reports: Depression Other Psychiatric History: PANIC DISORDER Endocrine/Metabolic History: Reports: Diabetes, Type II, Obesity/BMI 30+ Immunologic History: Reports: None Oncologic (Cancer) History: Reports: None Dermatologic History: Reports: Eczema Other Dermatologic History: DERMATITIS, - Infectious Disease History Infectious Disease History: Reports: None - Past Surgical History Head Surgeries/Procedures: Reports: None HEENT Surgical History: Reports: Naso-Sinus Surgery, Tonsillectomy, Other (See Below) Other HEENT Surgeries/Procedures: SEPTOPLASTY Respiratory Surgical History: Reports: None GI Surgical History: Reports: Other (See Below) Other GI Surgeries/Procedures: HX DX LAPAROSCOPY Female Surgical History: Reports: Section Social & Family History - Family History Family Medical History: No Pertinent Family History - Caffeine Use Caffeine Use: Reports: Energy Drinks, Soda Other Caffeine Use: occasional ED ROS GENERAL - Review of Systems Review Of Systems: See Below Constitutional: Reports: No Symptoms HEENT: Reports: No Symptoms Respiratory: Reports: No Symptoms Cardiovascular: Reports: No Symptoms Endocrine: Reports: No Symptoms GI/Abdominal: Reports: No Symptoms : Reports: No Symptoms Musculoskeletal: Reports: No Symptoms Skin: Reports: No Symptoms ED EXAM, GENERAL - Physical Exam Exam: See Below Exam Limited By: No Limitations General Appearance: Alert, No Apparent Distress Ears: Normal External Exam, Normal Canal Nose: Normal Inspection, Normal Mucosa, No Blood Throat/Mouth: Normal Inspection, Normal Lips, Normal Teeth Head: Atraumatic, Normocephalic Neck: Normal Inspection, Supple, Non-Tender, Full Range of Motion Respiratory/Chest: No Respiratory Distress, Lungs Clear, Normal Breath Sounds, No Accessory Muscle Use, Chest Non-Tender Cardiovascular: Normal Peripheral Pulses, Regular Rate, Rhythm, No Edema, No Gallop, No JVD, No Murmur, No Rub GI/Abdominal: Normal Bowel Sounds, Soft, Non-Tender, No Organomegaly Back Exam: Normal Inspection, Full Range of Motion Extremities: Normal Inspection, Normal Range of Motion, Non-Tender, No Pedal Edema, Normal Capillary Refill Neurological: Alert, Oriented, CN II-XII Intact, Normal Reflexes, No Motor/Sensory Deficits Psychiatric: Normal Affect Skin Exam: Warm Course - Vital Signs Text/Narrative:: UA was negative but patient is symptomatic. Last Recorded V/S: Last Vital Signs Temp 36.8 C 12/30/20 20:04 Pulse 86 12/30/20 20:04 Resp 16 12/30/20 20:04 BP 151/84 H 12/30/20 20:04 Pulse Ox 94 L 12/30/20 20:04 - Orders/Labs/Meds Labs: Laboratory Tests 12/30/20 Range/Units 20:15 Urine Color Yellow (YELLOW) Urine Appearance Clear (CLEAR) Urine pH 6.5 (5.0-6.5) Ur Specific [place] 1.020 (1.010-1.025) Urine Protein Negative (NEGATIVE) mg/dL Urine Glucose (UA) 50 H (NORMAL) mg/dL Urine Ketones Negative (NEGATIVE) mg/dL Urine Occult Blood Negative (NEGATIVE) Urine Nitrite Negative (NEGATIVE) Urine Bilirubin Negative (NEGATIVE) Urine Urobilinogen 1 H (NEGATIVE) mg/dL Ur Leukocyte Esterase Negative (NEGATIVE) Urine RBC 0-5 (0-5) Urine WBC 0-5 (0-5) Ur Squamous Epith Cells Few H (NS,R,O) Urine Bacteria Few H (NS) Meds: Medications Discontinued Medications Generic Name Dose Route Start Last Admin Trade Name Amada PRN Reason Stop Dose Admin Cephalexin 500 mg 12/30/20 20:56 12/30/20 21:06 Cephalexin 500 Mg Cap PO 12/30/20 20:57 500 mg NOW STA Administration Departure - Departure Time of Disposition: 20:55 Disposition: Home, Self-Care 01 Condition: Good Clinical Impression: UTI (urinary tract infection) - Discharge Information Prescriptions: cephALEXin [Keflex] 500 mg PO Q8H #15 cap Instructions: Urinary Tract Infection, Adult, [id number], Cephalexin Tablets or Capsules Referrals: Osmar Zuniga MD [Primary Care Provider] - Forms: ED Department Discharge Additional Instructions: Please read discharge instructions on UTI Increase fluid intake Keflex 500 mg 3 times daily for 5 days Follow up as needed Sepsis Event Note (ED) - Evaluation Sepsis Screening Result: No Definite Risk - Focused Exam Vital Signs: Vital Signs Temp Pulse Resp BP Pulse Ox 12/30/20 20:04 36.8 C 86 16 151/84 H 94 L
[2020-12-30] MEDS ORDERED: Cephalexin 500 MG Cap PO STA (20:56)
== END 2020-12-30 21:00 | disposition home or self-care (01) ==
LOC: FB.ED 19:45
DX: N39.0 Urinary tract infection, site not specified (principal); J45.909 Unspecified asthma, uncomplicated; E11.9 Type 2 diabetes mellitus without complications; E66.9 Obesity, unspecified; Z68.31 Body mass index [BMI] 31.0-31.9, adult; Z88.5 Allergy status to narcotic agent; Z91.040 Latex allergy status; Z88.2 Allergy status to sulfonamides; Z79.4 Long term (current) use of insulin
CPT/HCPCS: 81001; 99283; A9270

== ENCOUNTER 2021-04-10 22:24 | Emergency (ER) | payer BC, MEDICAID ==
[2021-04-10 22:42] VITALS: BP 148/83
[2021-04-10] MEDS ORDERED: LORazepam 2 MG/ML SDV IVPUSH STA (23:48)
[2021-04-10] MEDS ORDERED: Albuterol/Ipratropium 3.0-0.5 MG/3 ML Neb Soln NEB ONE (23:48)
[2021-04-10] MEDS ORDERED: LORazepam 2 MG/ML SDV IM STA (23:49)
[2021-04-11 01:46] VITALS: PULSE 89
== END 2021-04-11 01:10 | disposition home or self-care (01) ==
LOC: FB.ED 22:24
DX: J45.909 Unspecified asthma, uncomplicated (principal); F41.9 Anxiety disorder, unspecified; E11.9 Type 2 diabetes mellitus without complications; E66.9 Obesity, unspecified; Z68.32 Body mass index [BMI] 32.0-32.9, adult; Z88.5 Allergy status to narcotic agent; Z91.040 Latex allergy status; Z88.2 Allergy status to sulfonamides; Z79.4 Long term (current) use of insulin
CPT/HCPCS: 36415; 80053; 85025; 85379; 94640; 96372; 99283-25; J2060; J7620-GY

== ENCOUNTER 2021-06-16 16:52 | Emergency (ER) | payer BC, MEDICAID ==
[2021-06-16 17:09] VITALS: BP 159/110; PULSE 90
== END 2021-06-16 18:25 | disposition home or self-care (01) ==
LOC: FB.ED 16:52
DX: K59.00 Constipation, unspecified (principal); E11.9 Type 2 diabetes mellitus without complications; E66.9 Obesity, unspecified; Z68.32 Body mass index [BMI] 32.0-32.9, adult; Z88.5 Allergy status to narcotic agent; Z91.040 Latex allergy status; Z88.1 Allergy status to other antibiotic agents; Z79.4 Long term (current) use of insulin
CPT/HCPCS: 74019; 99283; 99283-25

== ENCOUNTER 2021-11-07 11:19 | Emergency (ER) | payer BC, MEDICAID ==
[2021-11-07 12:04] LABS: ESTIMATED GFR 114 mL/min (>60)
== END 2021-11-07 13:21 | disposition home or self-care (01) ==
LOC: FB.ED 11:19
DX: R07.9 Chest pain, unspecified (principal); E11.9 Type 2 diabetes mellitus without complications; E66.9 Obesity, unspecified; Z68.30 Body mass index [BMI] 30.0-30.9, adult; Z88.5 Allergy status to narcotic agent; Z91.040 Latex allergy status; Z88.2 Allergy status to sulfonamides; Z79.899 Other long term (current) drug therapy
CPT/HCPCS: 36415; 80053; 84484; 85025; 85379; 93005; 93010; 99282; 99285

== ENCOUNTER 2022-02-20 18:23 | Emergency (ER) | payer BC, MEDICAID ==
[2022-02-20] MEDS ORDERED: Ketorolac 30 MG/ML SDV IVPUSH ONE (18:27)
[2022-02-20] MEDS ORDERED: Lactated Ringers 1,000 ML IV ONE (18:27)
[2022-02-20] MEDS ORDERED: diphenhydrAMINE 50 MG/ML SDV IVPUSH ONE (18:27)
[2022-02-20] MEDS ORDERED: Prochlorperazine 10 MG in Sodium Chloride 0.9% 50 ML IV ONE (18:28)
[2022-02-21 06:51] VITALS: BP 165/102; PULSE 86
== END 2022-02-20 21:14 | disposition home or self-care (01) ==
LOC: FB.ED 18:23
DX: G43.909 Migraine, unspecified, not intractable, without status migrainosus (principal); J45.909 Unspecified asthma, uncomplicated; E11.9 Type 2 diabetes mellitus without complications; E66.9 Obesity, unspecified; Z68.31 Body mass index [BMI] 31.0-31.9, adult; Z88.5 Allergy status to narcotic agent; Z91.040 Latex allergy status; Z88.2 Allergy status to sulfonamides; Z79.899 Other long term (current) drug therapy
CPT/HCPCS: 96365; 96375; 99283; J0780; J1200; J1885; J3490; J7120

== ENCOUNTER 2022-02-21 20:58 | Emergency (ER) | payer BC, MEDICAID ==
[2022-02-21] MEDS ORDERED: Lactated Ringers 1,000 ML IV ONE (21:00)
[2022-02-21] MEDS ORDERED: Prochlorperazine 10 MG/2 ML SDV IVPUSH ONE (21:01)
[2022-02-21] MEDS ORDERED: diphenhydrAMINE 50 MG/ML SDV IVPUSH ONE (21:01)
[2022-02-21] MEDS ORDERED: Ketorolac 30 MG/ML SDV IVPUSH ONE (21:01)
[2022-02-21] MEDS ORDERED: Dexamethasone 4 MG/ML SDV IVPUSH ONE (21:44)
[2022-02-21 23:44] VITALS: BP 138/88; PULSE 76
[2022-02-22] MEDS ORDERED: Prochlorperazine 10 MG/2 ML SDV ONE (00:37)
== END 2022-02-21 23:20 | disposition home or self-care (01) ==
LOC: FB.ED 20:58
DX: G43.901 Migraine, unspecified, not intractable, with status migrainosus (principal); E11.9 Type 2 diabetes mellitus without complications; E66.9 Obesity, unspecified; Z88.5 Allergy status to narcotic agent; Z91.040 Latex allergy status; Z88.1 Allergy status to other antibiotic agents; Z68.41 Body mass index [BMI] 40.0-44.9, adult
CPT/HCPCS: 82947; 96365; 96375; 99283; J0780; J1100; J1200; J1885; J7120

== ENCOUNTER 2022-07-25 17:20 | Emergency (ER) | payer BC, MEDICAID ==
[2022-07-25] MEDS ORDERED: oxyCODONE 5 MG Tab PO ONE (18:17)
[2022-07-25 18:39] VITALS: BP 140/85; PULSE 74
== END 2022-07-25 18:36 | disposition home or self-care (01) ==
LOC: FB.ED 17:20
DX: K08.89 Other specified disorders of teeth and supporting structures (principal); I10 Essential (primary) hypertension; J45.909 Unspecified asthma, uncomplicated; E11.9 Type 2 diabetes mellitus without complications; E66.9 Obesity, unspecified; Z68.31 Body mass index [BMI] 31.0-31.9, adult; Z86.16 Personal history of COVID-19; Z88.5 Allergy status to narcotic agent; Z91.040 Latex allergy status; Z88.2 Allergy status to sulfonamides; Z79.899 Other long term (current) drug therapy
CPT/HCPCS: 99283; A9270-GY

== ENCOUNTER 2022-11-27 20:27 | Emergency (ER) | payer BC, MEDICAID ==
[2022-11-27] MEDS ORDERED: Fluconazole 150 MG Tab PO ONE (21:34)
[2022-11-28 00:54] VITALS: BP 136/89; PULSE 89
== END 2022-11-27 21:50 | disposition home or self-care (01) ==
LOC: FB.ED 20:27
DX: B37.31 Acute candidiasis of vulva and vagina (principal); I10 Essential (primary) hypertension; J45.909 Unspecified asthma, uncomplicated; E11.9 Type 2 diabetes mellitus without complications; E66.9 Obesity, unspecified; Z68.30 Body mass index [BMI] 30.0-30.9, adult; Z86.16 Personal history of COVID-19; Z88.5 Allergy status to narcotic agent; Z91.040 Latex allergy status; Z88.2 Allergy status to sulfonamides; Z79.899 Other long term (current) drug therapy
CPT/HCPCS: 99283; A9270

== ENCOUNTER 2023-10-04 22:42 | Emergency (ER) | payer BC, MEDICAID ==
[2023-10-04 23:15] VITALS: BP 153/84; PULSE 71
== END 2023-10-05 00:25 | disposition home or self-care (01) ==
LOC: FB.ED 22:42
DX: S66.316A Strain of extensor muscle, fascia and tendon of right little finger at wrist and hand level, initial encounter (principal); S60.152A Contusion of left little finger with damage to nail, initial encounter; I10 Essential (primary) hypertension; Z86.16 Personal history of COVID-19; Z88.5 Allergy status to narcotic agent; Z91.040 Latex allergy status; Z88.2 Allergy status to sulfonamides; Z88.8 Allergy status to other drugs, medicaments and biological substances; Z79.899 Other long term (current) drug therapy; W21.07XA Struck by softball, initial encounter; Y93.89 Activity, other specified
CPT/HCPCS: 73130-RT; 99283

== ENCOUNTER 2024-08-28 16:05 | Emergency (ER) | payer BC ==
[2024-08-28] MEDS: Sodium Chloride 0.9% 1,000 ML IV ONE (16:41)
[2024-08-28 16:47] LABS: BASOPHILS PERCENT AUTO 0.3 % (0.2-1.5); EOSINOPHILS ABSOLUTE AUTO 0.2 x10-3/uL (0.0-0.8); EOSINOPHILS PERCENT AUTO 2.1 % (0.6-8.1); HEMATOCRIT 37.8 % (34.2-48.2); HEMOGLOBIN 12.9 g/dL (11.4-15.5); LYMPHOCYTES ABSOLUTE AUTO 2.8 x10-3/uL (1.0-4.4); LYMPHOCYTES PERCENT AUTO 30.4 % (18.4-52.1); MEAN CORPUSCULAR HEMOGLOBIN 30.4 pg (23.9-33.9); MEAN CORPUSCULAR HGB CONC 34.1 g/dL (31.9-34.8); MEAN CORPUSCULAR VOLUME 89.1 fL (76.7-100.5); MEAN PLATELET VOLUME 8.9 fL (7.1-12.4); MONOCYTES ABSOLUTE AUTO 0.6 x10-3/uL (0.3-1.0); MONOCYTES PERCENT AUTO 6.4 % (4.4-15.7); NEUTROPHILS ABSOLUTE AUTO 5.6 x10-3/uL (1.5-6.3); NEUTROPHILS PERCENT AUTO 60.8 % (30.8-76.2); PLATELET COUNT,PLT 149 x10(3)uL (151-488); RED BLOOD CELL COUNT 4.25 x10(6)uL (3.60-5.20); WHITE BLOOD CELL COUNT,WBC 9.2 x10-3/uL (3.0-10.3)
[2024-08-28 16:51] LABS: BLOOD UREA NITROGEN,BUN 8 mg/dL (7-18); CALCIUM 9.3 mg/dL (8.6-10.2); CARBON DIOXIDE,CO2 26 mmol/L (21-32); CHLORIDE,CL 102 mmol/L (100-110); CREATININE 0.8 mg/dL (0.55-1.02); ESTIMATED GFR 95 mL/min (>60); GLUCOSE RANDOM 128 mg/dL (80-116); POTASSIUM,K 3.9 mmol/L (3.5-5.3); SODIUM,NA 137 mmol/L (135-145)
[2024-08-28 17:02] LABS: A/G RATIO 0.9; ALANINE AMINOTRANSFERASE,ALT 36 U/L (12-36); ALBUMIN 3.8 g/dL (3.5-5.2); ALKALINE PHOSPHATASE 100 IU/L (56-112); ASPARTATE AMNIOTRANSFERASE,AST 50 IU/L (5-25); BILIRUBIN TOTAL 0.5 mg/dL (0.1-1.3); PROTEIN TOTAL,TP 7.9 g/dL (6.0-8.0)
[2024-08-28] MEDS: Iopamidol 755 Mg/ML 100 ML Bottle IV SCH (17:36)
[2024-08-28 18:41] LABS: BILIRUBIN,URINE NEGATIVE (NEGATIVE); GLUCOSE,URINE NORMAL (NORMAL); KETONES,URINE NEGATIVE (NEGATIVE); LEUKOCYTE ESTERASE,URINE NEGATIVE (NEGATIVE); NITRITE,URINE NEGATIVE (NEGATIVE); OCCULT BLOOD,URINE NEGATIVE (NEGATIVE); PROTEIN,URINE NEGATIVE (NEGATIVE); UROBILINOGEN,URINE NORMAL (NEGATIVE)
[2024-08-28 18:42] LABS: APPEARANCE,URINE CLEAR (CLEAR); COLOR,URINE YELLOW (YELLOW)
[2024-08-28 19:17] VITALS: BP 158/87; PULSE 75
== END 2024-08-28 19:16 | disposition home or self-care (01) ==
LOC: FB.ED 16:05
DX: R10.9 Unspecified abdominal pain (principal); I10 Essential (primary) hypertension; J45.909 Unspecified asthma, uncomplicated; E11.9 Type 2 diabetes mellitus without complications; Z86.16 Personal history of COVID-19; Z88.5 Allergy status to narcotic agent; Z88.8 Allergy status to other drugs, medicaments and biological substances; Z91.040 Latex allergy status; Z79.899 Other long term (current) drug therapy
CPT/HCPCS: 36415; 74177; 80053; 81003; 83605; 83690; 85025; 99284; J7030; Q9967

== ENCOUNTER 2024-12-11 16:50 | Emergency (ER) | payer BC ==
[2024-12-11 17:17] VITALS: BP 151/95; PULSE 74
[2024-12-11] MEDS: hydrOXYzine HCl 50 MG/ML SDV IM ONE (17:52)
[2024-12-11] MEDS: Ketorolac 30 MG/ML SDV IM ONE (17:52)
== END 2024-12-11 18:48 | disposition home or self-care (01) ==
LOC: FB.ED 16:50
DX: G43.009 Migraine without aura, not intractable, without status migrainosus (principal); I10 Essential (primary) hypertension; E11.9 Type 2 diabetes mellitus without complications; E66.9 Obesity, unspecified; Z86.16 Personal history of COVID-19; Z88.5 Allergy status to narcotic agent; Z88.2 Allergy status to sulfonamides; Z88.1 Allergy status to other antibiotic agents; Z91.040 Latex allergy status; Z79.899 Other long term (current) drug therapy
CPT/HCPCS: 82947; 96372; 99283; J1885; J3410

== ENCOUNTER 2025-02-21 19:47 | Emergency (ER) | payer BC ==
[2025-02-21 20:43] LABS: GLUCOSE,URINE NORMAL (NORMAL); OCCULT BLOOD,URINE LARGE (NEGATIVE)
[2025-02-21 20:45] LABS: BASOPHILS ABSOLUTE AUTO 0.0 x10-3/uL (0.0-0.1); BASOPHILS PERCENT AUTO 0.5 % (0.2-1.5); EOSINOPHILS ABSOLUTE AUTO 0.2 x10-3/uL (0.0-0.8); EOSINOPHILS PERCENT AUTO 2.1 % (0.6-8.1); LYMPHOCYTES ABSOLUTE AUTO 2.6 x10-3/uL (1.0-4.4); LYMPHOCYTES PERCENT AUTO 33.4 % (18.4-52.1); MEAN PLATELET VOLUME 9.3 fL (7.1-12.4); MONOCYTES ABSOLUTE AUTO 0.5 x10-3/uL (0.3-1.0); MONOCYTES PERCENT AUTO 6.4 % (4.4-15.7); NEUTROPHILS ABSOLUTE AUTO 4.5 x10-3/uL (1.5-6.3); NEUTROPHILS PERCENT AUTO 57.6 % (30.8-76.2); PLATELET COUNT,PLT 124 x10(3)uL (151-488); RED BLOOD CELL COUNT 4.04 x10(6)uL (3.60-5.20); RED CELL DISTRIBUTION WIDTH 14.1 % (12.3-16.5); WHITE BLOOD CELL COUNT,WBC 7.9 x10-3/uL (3.0-10.3)
[2025-02-21 20:48] LABS: APPEARANCE,URINE SLIGHTLY CLOUDY (CLEAR); SQUAMOUS EPITHELIAL CELLS,UR FEW (NS,R,O)
[2025-02-21 20:48] LABS: BLOOD UREA NITROGEN,BUN 13 mg/dL (7-18); CARBON DIOXIDE,CO2 28 mmol/L (21-32); CHLORIDE,CL 103 mmol/L (100-110); CREATININE 0.9 mg/dL (0.55-1.02); EST CRCL DRUG DOSING (CG) 65.06 mL/min; ESTIMATED GFR 82 mL/min (>60); GLUCOSE RANDOM 151 mg/dL (80-116); POTASSIUM,K 4.0 mmol/L (3.5-5.3); SODIUM,NA 141 mmol/L (135-145)
[2025-02-21 20:54] LABS: A/G RATIO 1.0; ALANINE AMINOTRANSFERASE,ALT 40 U/L (12-36); ASPARTATE AMNIOTRANSFERASE,AST 51 IU/L (5-25); BILIRUBIN TOTAL 0.7 mg/dL (0.1-1.3); PROTEIN TOTAL,TP 7.8 g/dL (6.0-8.0)
[2025-02-21 20:58] LABS: LACTIC ACID 1.6 mmol/L (0.4-2.0)
[2025-02-21] MEDS: hydrOXYzine HCl 50 MG/ML SDV IM ONE (20:59)
[2025-02-21 21:18] VITALS: BP 143/89; PULSE 74
== END 2025-02-21 21:55 | disposition home or self-care (01) ==
LOC: FB.ED 19:47
DX: N30.01 Acute cystitis with hematuria (principal); F41.9 Anxiety disorder, unspecified; I10 Essential (primary) hypertension; E66.9 Obesity, unspecified; E11.9 Type 2 diabetes mellitus without complications; Z88.2 Allergy status to sulfonamides; Z91.040 Latex allergy status; Z88.8 Allergy status to other drugs, medicaments and biological substances; Z79.899 Other long term (current) drug therapy; Z86.16 Personal history of COVID-19; Z68.32 Body mass index [BMI] 32.0-32.9, adult
CPT/HCPCS: 36415; 80053; 81001; 83605; 84484; 85025; 86140; 87086; 93005; 96372; 99283; A9270; J3410